=== PATIENT | female | born 1965 | race African-American/Black ===

== ENCOUNTER 2022-10-26 14:59 | Inpatient (IN) | payer BC ==
[2022-10-26 15:14] VITALS: BMI 20.1
[2022-10-26] MEDS ORDERED: ONDANSETRON *ODT* 4 MG TABLET SL PRN (17:41)
[2022-10-26] MEDS ORDERED: LOPERAMIDE HCL 2 MG CAPSULE PO PRN (17:41)
[2022-10-26] MEDS ORDERED: POLYETHYLENE GLYCOL (HEALTHYLAX) 3350 17 GM PACKET PO PRN (17:41)
[2022-10-26] MEDS ORDERED: guaiFENesin 600 MG TABLET.ER (FP) PO PRN (17:41)
[2022-10-26] MEDS ORDERED: DICYCLOMINE HCL 10 MG CAPSULE PO PRN (17:41)
[2022-10-26] MEDS ORDERED: MAGNESIUM HYDROX 2400MG/30ML ORAL SUSPENSION 30 ML CUP PO PRN (17:41)
[2022-10-26] MEDS ORDERED: ACETAMINOPHEN 325 MG TABLET (FP) PO PRN (17:41)
[2022-10-26] MEDS ORDERED: BENZONATATE 200 MG CAPSULE PO PRN (17:41)
[2022-10-26] MEDS ORDERED: NALOXONE HCL 0.4 MG/ML VIAL IM PRN (17:41)
[2022-10-26] MEDS ORDERED: BENZOCAINE/MENTHOL (CHLORASEPTIC ) LOZENGE MM PRN (17:41)
[2022-10-26] MEDS ORDERED: BISMUTH SUBSALICYLATE 524 MG/30 ML PO PRN (17:41)
[2022-10-26] MEDS ORDERED: MAG HYDROX/AL HYDROX/SIMETH 30 ML UNIT-DOSE CUP PO PRN (17:41)
[2022-10-26] MEDS ORDERED: IBUPROFEN 400 MG TABLET (FP) PO PRN (17:41)
[2022-10-26] MEDS ORDERED: NALOXONE HCL (KLOXXADO) 8 MG SPRAY NS PRN (17:41)
[2022-10-26] MEDS: MELATONIN 5 MG TABLETS PO SCH (21:42)
[2022-10-26] MEDS: IBUPROFEN 600 MG TABLET (FP) PO PRN (21:42)
[2022-10-26] MEDS: CLINDAMYCIN HCL 150 MG CAPSULE (FP) PO SCH (21:43)
[2022-10-26] MEDS: METHOCARBAMOL 500 MG TABLET PO PRN (21:43)
[2022-10-26] MEDS: THIAMINE HCL 100 MG TABLET (FP) PO SCH (21:43)
[2022-10-26] MEDS: hydrOXYzine PAMOATE 25 MG CAPSULE (FP) PO PRN (21:43)
[2022-10-27] MEDS: CLINDAMYCIN HCL 150 MG CAPSULE (FP) PO SCH ×3 (05:57→22:03)
[2022-10-27] MEDS: METHOCARBAMOL 500 MG TABLET PO PRN ×2 (05:58→22:06)
[2022-10-27] MEDS: IBUPROFEN 600 MG TABLET (FP) PO PRN ×2 (05:59→22:06)
[2022-10-27] MEDS: hydrOXYzine PAMOATE 25 MG CAPSULE (FP) PO PRN ×2 (05:59→17:44)
[2022-10-27] MEDS ORDERED: methaDONE HCL 10 MG TABLET (FOR DETOX USE ONLY) PO ONE (09:46)
[2022-10-27] MEDS: PRENATAL VITAMINS W/ FOLIC ACID TABLET (FP) PO SCH (10:38)
[2022-10-27] MEDS: NICOTINE 10 MG CARTRIDGE (INHALER) IH PRN (10:41)
[2022-10-27 12:15] LABS: HEMATOCRIT 29.8 % (32.4-45.2); MCH 31.3 pg (25.7-33.7); MCHC 33.6 g/dl (32.0-36.0); MEAN CELL VOLUME 93.2 fl (80-96); MEAN PLT VOLUME 9.5 fl (7.5-11.1); PLATELET COUNT 154 10^3/uL (134-434); RDW 15.4 % (11.6-15.6); WHITE BLOOD COUNT 5.2 K/mm3 (4.0-10.0)
[2022-10-27 12:25] LABS: CALCIUM 8.7 mg/dL (8.5-10.1)
[2022-10-27 12:26] LABS: ALBUMIN 2.6 g/dl (3.4-5.0); BLOOD UREA NITROGEN 26.2 mg/dL (7-18)
[2022-10-27 12:29] LABS: CREATININE 1.5 mg/dL (0.55-1.3)
[2022-10-27 12:30] LABS: BILIRUBIN,TOTAL 0.4 mg/dL (0.2-1)
[2022-10-27 12:31] LABS: TOT PROT 5.9 g/dl (6.4-8.2)
[2022-10-27] MEDS: cloNIDine HCL 0.1 MG TABLET PO PRN ×2 (13:29→17:44)
[2022-10-27] MEDS ORDERED: QUEtiapine FUMARATE 50 MG TABLET PO SCH (22:00)
[2022-10-27] MEDS: MELATONIN 5 MG TABLETS PO SCH (22:03)
[2022-10-27] MEDS: THIAMINE HCL 100 MG TABLET (FP) PO SCH (22:03)
[2022-10-27] MEDS: DIVALPROEX SODIUM 125 MG TABLET E.C. PO SCH (22:04)
[2022-10-28] MEDS: CLINDAMYCIN HCL 150 MG CAPSULE (FP) PO SCH ×2 (05:47→13:29)
[2022-10-28] MEDS: METHOCARBAMOL 500 MG TABLET PO PRN ×2 (05:48→18:07)
[2022-10-28] MEDS: IBUPROFEN 600 MG TABLET (FP) PO PRN (05:48)
[2022-10-28] MEDS: NICOTINE 10 MG CARTRIDGE (INHALER) IH PRN (05:53)
[2022-10-28] MEDS: cloNIDine HCL 0.1 MG TABLET PO PRN (10:14)
[2022-10-28] MEDS: PRENATAL VITAMINS W/ FOLIC ACID TABLET (FP) PO SCH (10:14)
[2022-10-28] MEDS: DIVALPROEX SODIUM 125 MG TABLET E.C. PO SCH (10:15)
[2022-10-28] MEDS ORDERED: QUEtiapine FUMARATE 25 MG TABLET PO ONE (12:40)
[2022-10-28] MEDS: hydrOXYzine PAMOATE 25 MG CAPSULE (FP) PO PRN (13:49)
[2022-10-28] MEDS ORDERED: BACITRACIN 0.9 GM PACKET TP SCH (17:00)
[2022-10-28] MEDS ORDERED: QUEtiapine FUMARATE 50 MG TABLET PO ONE (17:19)
[2022-10-28 18:18] VITALS: RESP 18
[2022-10-28] MEDS ORDERED: DIVALPROEX SODIUM 250 MG TABLET E.C. PO SCH (22:00)
[2022-10-28] MEDS ORDERED: QUEtiapine FUMARATE 50 MG TABLET PO SCH (22:00)
[2022-10-28] MEDS ORDERED: QUEtiapine FUMARATE 100 MG TABLET (FP) PO SCH (22:00)
[2022-10-28 23:05] VITALS: BP 114/64; PULSE 78; TEMP 98.8
[2022-10-29] MEDS ORDERED: methaDONE HCL 10 MG TABLET (FOR DETOX USE ONLY) PO ONE (10:00)
[2022-10-31] MEDS ORDERED: methaDONE HCL 10 MG TABLET (FOR DETOX USE ONLY) PO ONE (10:00)
== END 2022-10-28 22:39 | disposition left against medical advice (07) | DRG 894 ==
LOC: YASAS 14:59 → Y3N 17:20 → UNDOADMIN 17:20
PROVIDERS: ADMIT Allergy & Immunology; ATTEND Surgery
PROC: HZ2ZZZZ Detoxification Services for Substance Abuse Treatment (ICD-10-PCS; principal; 2022-10-26)
DX: F11.23 Opioid dependence with withdrawal (principal); F14.20 Cocaine dependence, uncomplicated; F10.230 Alcohol dependence with withdrawal, uncomplicated; F17.210 Nicotine dependence, cigarettes, uncomplicated; F19.24 Other psychoactive substance dependence with psychoactive substance-induced mood disorder; G47.00 Insomnia, unspecified; I10 Essential (primary) hypertension; M54.50 Low back pain, unspecified; G89.29 Other chronic pain; N28.9 Disorder of kidney and ureter, unspecified; Z86.59 Personal history of other mental and behavioral disorders; Z86.16 Personal history of COVID-19; Z88.0 Allergy status to penicillin; Z88.2 Allergy status to sulfonamides; Z91.199 Patient's noncompliance with other medical treatment and regimen due to unspecified reason
CPT/HCPCS: 36415; 80053; 85027; 86593; 86780; 93005; 93010